=== PATIENT | male | born 1965 | race Caucasian/White ===

== ENCOUNTER 2017-03-28 11:31 | Inpatient (IN) | payer BC ==
[2017-03-28] MEDS: PIPERACILLIN/TAZOBACTAM 3.375 GM in IV NORMAL SALINE 50ML 50 ML IV ×2 (13:02→17:04)
[2017-03-28 13:21] LABS: ADD MAN DIFF? NO
[2017-03-28 13:23] LABS: BASO % 0 % (0-3); EOS % 0 % (0-3); HEMATOCRIT 41.1 % (39.0-53.0); HEMOGLOBIN 14.2 g/dL (13.0-17.5); LYMPH # 0.9 x10^3/uL (1.0-4.8); LYMPH % 8 % (24-48); MEAN CORPUSCULAR HEMOGLOBIN 30 pg (25-35); MEAN CORPUSCULAR HGB CONC 35 g/dL (31-37); MEAN CORPUSCULAR VOLUME 86 fL (79-100); MONO # 0.9 x10^3/uL (0.0-1.1); MONO % 8 % (0-9); NEUT # 9.9 x10^3uL (1.8-7.7); NEUT % 84 % (31-73); PLATELET COUNT 276 x10^3/uL (140-400); RED BLOOD COUNT 4.78 x10^6/uL (4.30-5.70); WHITE BLOOD COUNT 11.8 x10^3/uL (4.0-11.0)
[2017-03-28 13:45] LABS: ALBUMIN 3.1 g/dL (3.4-5.0); ALBUMIN/GLOBULIN RATIO 0.6 (1.0-1.7); ALK PHOS 74 U/L (46-116); ALT (SGPT) 27 U/L (16-63); ANION GAP 11 (6-14); AST (SGOT) 26 U/L (15-37); BLOOD UREA NITROGEN 12 mg/dL (8-26); BUN/CREATININE RATIO 10 (6-20); CALCIUM 8.9 mg/dL (8.5-10.1); CARBON DIOXIDE 29 mmol/L (21-32); CHLORIDE 92 mmol/L (98-107); CREATININE 1.2 mg/dL (0.7-1.3); GFR 63.3; GLUCOSE 107 mg/dL (70-99); POTASSIUM 3.5 mmol/L (3.5-5.1); SODIUM 132 mmol/L (136-145); TOTAL BILIRUBIN 0.6 mg/dL (0.2-1.0); TOTAL PROTEIN 8.3 g/dL (6.4-8.2)
[2017-03-28] MEDS ORDERED: ACETAMINOPHEN 325 MG TABLET. PO (14:00)
[2017-03-28] MEDS ORDERED: DOCUSATE SODIUM 100 MG CAPSULE. PO (14:00)
[2017-03-28] MEDS ORDERED: LORazepam 0.5 MG TABLET PO (14:00)
[2017-03-28 14:24] LABS: INR 1.2 (0.8-1.1); PARTIAL THROMBOPLASTIN TIME 40 SEC (24-38); PROTHROMBIN TIME PATIENT 14.4 SEC (11.7-14.0)
[2017-03-28 14:43] LABS: INFLUENZA A PATIENT NEGATIVE (NEGATIVE); INFLUENZA B PATIENT NEGATIVE (NEGATIVE); OBC FLU VALID
[2017-03-28] MEDS: guaiFENesin ORAL 200 MG/10 ML LIQUID. PO (14:44)
[2017-03-28] MEDS: AMINO AC 3%/ELECTROLYTE/GLYCER 1,000 ML IV (14:44)
[2017-03-28] MEDS: MULTIVITAMIN with MINERAL TABLET. PO (14:45)
[2017-03-28] MEDS: IPRATRPIUM/ALBUTEROL 0.5/2.5MG 3 ML NEBU. NEB ×3 (15:15→23:23)
[2017-03-28 17:25] LABS: LACTIC ACID 1.2 mmol/L (0.4-2.0)
[2017-03-28] MEDS ORDERED: ALPRAZolam 1 MG TABLET PO (17:45)
[2017-03-28] MEDS ORDERED: diphenhydrAMINE HCL 25 MG CAPSULE PO (17:45)
[2017-03-28] MEDS: DOXYCYCLINE HYCLATE 100 MG in IV DEXTROSE 5% 100 ML IV (18:24)
[2017-03-28] MEDS: methylPREDNISolone SOD SUCC PF 125 MG/2 ML VIAL. IV (18:24)
[2017-03-28] MEDS: diphenhydrAMINE HCL 25 MG CAPSULE PO (22:12)
[2017-03-28 23:10] LABS: LEGIONELLA AG UR Negative (Negative)
[2017-03-29] MEDS: PIPERACILLIN/TAZOBACTAM 3.375 GM in IV NORMAL SALINE 50ML 50 ML IV ×4 (00:07→18:29)
[2017-03-29 00:19] LABS: POC GLUCOSE 178 mg/dL (70-99)
[2017-03-29] MEDS: IPRATRPIUM/ALBUTEROL 0.5/2.5MG 3 ML NEBU. NEB ×6 (05:06→23:55)
[2017-03-29 06:02] LABS: POC GLUCOSE 168 mg/dL (70-99)
[2017-03-29 06:26] LABS: ALBUMIN/GLOBULIN RATIO 0.5 (1.0-1.7); ALK PHOS 82 U/L (46-116); ALT (SGPT) 30 U/L (16-63); ANION GAP 12 (6-14); AST (SGOT) 25 U/L (15-37); BLOOD UREA NITROGEN 17 mg/dL (8-26); BUN/CREATININE RATIO 13 (6-20); CALCIUM 9.7 mg/dL (8.5-10.1); CARBON DIOXIDE 28 mmol/L (21-32); CHLORIDE 98 mmol/L (98-107); CREATININE 1.3 mg/dL (0.7-1.3); GFR 57.7; GLUCOSE 170 mg/dL (70-99); POTASSIUM 3.8 mmol/L (3.5-5.1); SODIUM 138 mmol/L (136-145); TOTAL BILIRUBIN 0.5 mg/dL (0.2-1.0); TOTAL PROTEIN 8.8 g/dL (6.4-8.2)
[2017-03-29] MEDS: methylPREDNISolone SOD SUCC PF 125 MG/2 ML VIAL. IV ×3 (06:36→22:25)
[2017-03-29] MEDS: AMINO AC 3%/ELECTROLYTE/GLYCER 1,000 ML IV (06:37)
[2017-03-29] MEDS: MULTIVITAMIN with MINERAL TABLET. PO (08:47)
[2017-03-29 11:20] LABS: NT-PRO BNP 85 pg/mL (0-124)
[2017-03-29 11:28] LABS: POC GLUCOSE 142 mg/dL (70-99)
[2017-03-29] MEDS: DOXYCYCLINE HYCLATE 100 MG in IV DEXTROSE 5% 100 ML IV ×2 (12:25→21:20)
[2017-03-29 16:58] LABS: POC GLUCOSE 221 mg/dL (70-99)
[2017-03-29 17:18] LABS: SPECIMEN SOURCE Urine (.); STREP PNEUMO ANTIGEN Negative (Negative)
[2017-03-29] MEDS ORDERED: DEXTROSE 50% 25 GM / 50ML DISP.SYRIN. IV (18:30)
[2017-03-29] MEDS: INSULIN ASPART 300 UNITS/3 ML INSULN.PEN SQ (18:45)
[2017-03-29] MEDS: LACTOBACILLUS RHAMNOSUS GG 1 CAPSULE. PO (21:19)
[2017-03-29 21:21] LABS: POC GLUCOSE 172 mg/dL (70-99)
[2017-03-29] MEDS: diphenhydrAMINE HCL 25 MG CAPSULE PO (22:24)
[2017-03-30] MEDS: PIPERACILLIN/TAZOBACTAM 3.375 GM in IV NORMAL SALINE 50ML 50 ML IV ×4 (00:18→18:31)
[2017-03-30] MEDS: IPRATRPIUM/ALBUTEROL 0.5/2.5MG 3 ML NEBU. NEB ×6 (03:44→23:49)
[2017-03-30 05:36] LABS: BASO % 0 % (0-3); EOS % 0 % (0-3); HEMATOCRIT 37.9 % (39.0-53.0); HEMOGLOBIN 13.2 g/dL (13.0-17.5); LYMPH # 0.7 x10^3/uL (1.0-4.8); LYMPH % 3 % (24-48); MEAN CORPUSCULAR HEMOGLOBIN 30 pg (25-35); MEAN CORPUSCULAR HGB CONC 35 g/dL (31-37); MEAN CORPUSCULAR VOLUME 86 fL (79-100); MONO # 0.7 x10^3/uL (0.0-1.1); MONO % 3 % (0-9); NEUT # 20.4 x10^3uL (1.8-7.7); NEUT % 94 % (31-73); PLATELET COUNT 359 x10^3/uL (140-400); RED BLOOD COUNT 4.42 x10^6/uL (4.30-5.70); RED CELL DISTRIBUTION WIDTH 13.1 % (11.5-14.5); WHITE BLOOD COUNT 21.8 x10^3/uL (4.0-11.0)
[2017-03-30 05:56] LABS: ADD MAN DIFF? YES
[2017-03-30 05:58] LABS: FIBRINOGEN 716 mg/dL (200-440); PARTIAL THROMBOPLASTIN TIME 33 SEC (24-38)
[2017-03-30 05:59] LABS: INR 1.2 (0.8-1.1); PROTHROMBIN TIME PATIENT 14.9 SEC (11.7-14.0)
[2017-03-30 06:23] LABS: ANION GAP 12 (6-14); BLOOD UREA NITROGEN 24 mg/dL (8-26); CALCIUM 9.3 mg/dL (8.5-10.1); CARBON DIOXIDE 26 mmol/L (21-32); CHLORIDE 98 mmol/L (98-107); CREATININE 1.3 mg/dL (0.7-1.3); GFR 57.7; GLUCOSE 157 mg/dL (70-99); POTASSIUM 3.9 mmol/L (3.5-5.1); SODIUM 136 mmol/L (136-145)
[2017-03-30] MEDS: methylPREDNISolone SOD SUCC PF 125 MG/2 ML VIAL. IV ×2 (06:25→14:04)
[2017-03-30] MEDS: INSULIN ASPART 300 UNITS/3 ML INSULN.PEN SQ ×3 (08:00→17:00)
[2017-03-30 08:26] LABS: POC GLUCOSE 154 mg/dL (70-99)
[2017-03-30] MEDS: LACTOBACILLUS RHAMNOSUS GG 1 CAPSULE. PO ×2 (08:38→21:49)
[2017-03-30] MEDS: DOXYCYCLINE HYCLATE 100 MG in IV DEXTROSE 5% 100 ML IV ×2 (08:38→21:49)
[2017-03-30] MEDS: MULTIVITAMIN with MINERAL TABLET. PO (08:38)
[2017-03-30 10:33] LABS: % LYMPHS 4 % (24-48); % MONOS 1 % (0-10); % SEGS 95 % (35-66); PLT ESTIMATE ADEQUATE (ADEQUATE)
[2017-03-30 12:16] LABS: POC GLUCOSE 165 mg/dL (70-99)
[2017-03-30] MEDS: PANTOPRAZOLE 40 MG TABLET.DR. PO (14:03)
[2017-03-30] MEDS ORDERED: CONTRAST GIVEN MC (14:30)
[2017-03-30] MEDS: IOHEXOL 300 MG/ML 100ML VIAL. IV (14:48)
[2017-03-30 17:11] LABS: POC GLUCOSE 151 mg/dL (70-99)
[2017-03-30 20:25] LABS: POC GLUCOSE 187 mg/dL (70-99)
[2017-03-30] MEDS: diphenhydrAMINE HCL 25 MG CAPSULE PO (21:58)
[2017-03-31] MEDS: PIPERACILLIN/TAZOBACTAM 3.375 GM in IV NORMAL SALINE 50ML 50 ML IV ×4 (00:40→18:01)
[2017-03-31] MEDS: IPRATRPIUM/ALBUTEROL 0.5/2.5MG 3 ML NEBU. NEB ×5 (03:30→19:38)
[2017-03-31 05:07] LABS: ADD MAN DIFF? NO
[2017-03-31 05:24] LABS: BASO % 0 % (0-3); EOS % 0 % (0-3); HEMATOCRIT 38.9 % (39.0-53.0); HEMOGLOBIN 13.1 g/dL (13.0-17.5); LYMPH # 1.1 x10^3/uL (1.0-4.8); LYMPH % 6 % (24-48); MEAN CORPUSCULAR HEMOGLOBIN 29 pg (25-35); MEAN CORPUSCULAR HGB CONC 34 g/dL (31-37); MEAN CORPUSCULAR VOLUME 87 fL (79-100); MONO % 5 % (0-9); NEUT # 17.2 x10^3uL (1.8-7.7); NEUT % 89 % (31-73); PLATELET COUNT 371 x10^3/uL (140-400); RED BLOOD COUNT 4.45 x10^6/uL (4.30-5.70); RED CELL DISTRIBUTION WIDTH 13.1 % (11.5-14.5); WHITE BLOOD COUNT 19.3 x10^3/uL (4.0-11.0)
[2017-03-31 05:44] LABS: ANION GAP 13 (6-14); BLOOD UREA NITROGEN 24 mg/dL (8-26); CALCIUM 9.2 mg/dL (8.5-10.1); CARBON DIOXIDE 26 mmol/L (21-32); CHLORIDE 101 mmol/L (98-107); CREATININE 1.2 mg/dL (0.7-1.3); GFR 63.3; GLUCOSE 145 mg/dL (70-99); POTASSIUM 3.7 mmol/L (3.5-5.1); SODIUM 140 mmol/L (136-145)
[2017-03-31 07:33] LABS: POC GLUCOSE 125 mg/dL (70-99)
[2017-03-31] MEDS: INSULIN ASPART 300 UNITS/3 ML INSULN.PEN SQ ×3 (08:00→17:00)
[2017-03-31] MEDS: methylPREDNISolone SOD SUCC PF 125 MG/2 ML VIAL. IV (08:39)
[2017-03-31] MEDS: MULTIVITAMIN with MINERAL TABLET. PO (08:40)
[2017-03-31] MEDS: DOXYCYCLINE HYCLATE 100 MG in IV DEXTROSE 5% 100 ML IV ×2 (08:40→21:08)
[2017-03-31] MEDS: PANTOPRAZOLE 40 MG TABLET.DR. PO (08:41)
[2017-03-31] MEDS: LACTOBACILLUS RHAMNOSUS GG 1 CAPSULE. PO ×2 (08:42→21:06)
[2017-03-31 11:39] LABS: POC GLUCOSE 126 mg/dL (70-99)
[2017-03-31 17:09] LABS: POC GLUCOSE 158 mg/dL (70-99)
[2017-03-31] MEDS ORDERED: KETOROLAC 15 MG/ML VIAL. IV (18:45)
[2017-03-31] MEDS: diphenhydrAMINE HCL 25 MG CAPSULE PO (21:06)
[2017-04-01] MEDS: PIPERACILLIN/TAZOBACTAM 3.375 GM in IV NORMAL SALINE 50ML 50 ML IV ×3 (00:11→12:00)
[2017-04-01] MEDS: IPRATRPIUM/ALBUTEROL 0.5/2.5MG 3 ML NEBU. NEB ×5 (00:24→15:33)
[2017-04-01 07:33] LABS: FACTOR IX ASSAY SEE SEPARATE REPORT; FACTOR V ASSAY SEE SEPARATE REPORT; FACTOR VIII ASSAY SEE SEPARATE REPORT
[2017-04-01 07:34] LABS: FACTOR X ASSAY SEE SEPARATE REPORT; FACTOR XI ASSAY SEE SEPARATE REPORT; LUPUS ANTICOAGULANT SEE SEPARATE REPORT
[2017-04-01] MEDS: INSULIN ASPART 300 UNITS/3 ML INSULN.PEN SQ ×3 (08:00→17:00)
[2017-04-01] MEDS: LACTOBACILLUS RHAMNOSUS GG 1 CAPSULE. PO (09:00)
[2017-04-01] MEDS: DOXYCYCLINE HYCLATE 100 MG in IV DEXTROSE 5% 100 ML IV (09:26)
[2017-04-01] MEDS: MULTIVITAMIN with MINERAL TABLET. PO (09:34)
[2017-04-01] MEDS: methylPREDNISolone SOD SUCC PF 125 MG/2 ML VIAL. IV (09:34)
[2017-04-04 07:45] LABS: FACTOR XII ASSAY SEE SEPARATE REPORT
[2017-04-04 07:46] LABS: VON WILLEBRAND FACTOR AG SEE SEPARATE REPORT
== END 2017-04-01 17:15 | disposition home or self-care (01) | DRG 193 ==
LOC: 6 SOUTH 11:31
DX: J18.9 Pneumonia, unspecified organism (principal); J96.01 Acute respiratory failure with hypoxia; D68.9 Coagulation defect, unspecified; E44.1 Mild protein-calorie malnutrition; E87.1 Hypo-osmolality and hyponatremia; M19.90 Unspecified osteoarthritis, unspecified site; I10 Essential (primary) hypertension; T38.0X5A Adverse effect of glucocorticoids and synthetic analogues, initial encounter; Z86.718 Personal history of other venous thrombosis and embolism; Z88.8 Allergy status to other drugs, medicaments and biological substances; Z68.27 Body mass index [BMI] 27.0-27.9, adult
CPT/HCPCS: 36415; 71045; 71275; 80048; 80053; 82962; 83605; 83880; 85007; 85025; 85240; 85246; 85250; 85260; 85270; 85280; 85347; 85384; 85610; 85730; 87040; 87070; 87205; 87449; 87804; 87804-59; 93005; 93306; 94640; 94760; G0238; J1815; J2543; J2930; J3490; J7620; Q0163; Q9967